=== PATIENT | female | born 1955 | race Caucasian/White ===

== ENCOUNTER 2018-03-10 19:13 | Emergency (ER) | payer OTHER ==
[~2018-03-10] VITALS: Ht 160 cm; Wt 61.2 kg
== END 2018-03-11 02:23 | disposition home or self-care (01) ==
LOC: ER 19:13
DX: J11.1 Influenza due to unidentified influenza virus with other respiratory manifestations (principal)

== ENCOUNTER 2018-03-15 09:28 | Emergency (ER) | payer OTHER ==
[~2018-03-15] VITALS: Ht 160 cm; Wt 59.0 kg
[2018-03-15] MEDS ORDERED: FOSAMAX70 MG (09:40)
== END 2018-03-15 15:39 | disposition home or self-care (01) ==
LOC: ER 09:28
DX: R53.1 Weakness (principal); N39.0 Urinary tract infection, site not specified; R55 Syncope and collapse; E86.0 Dehydration